=== PATIENT | male | born 1975 ===

== ENCOUNTER → 2020-08-01 | Outpatient (CLI) | payer SELFPAY ==
[~2020-08-01] MED LIST: CYCL10 PO; ERYT.5TO LEFTEYE; IBUP600 PO; NAPR500 PO; Naprosyn500 MG PO; Norco 5-325 Ta1 EACH PO; OXYACE5T PO; STEROID EYE DROPS; TOBDEXOPSU OS; Ultram50 MG PO
[2020-08-01 12:20] LABS: BASOPHILS ABSOLUTE AUTO 0.04 K/mm3 (0.00-0.23); BASOPHILS PERCENT AUTO 0 % (0-2); EOSINOPHILS ABSOLUTE AUTO 0.22 K/mm3 (0.00-0.68); EOSINOPHILS PERCENT AUTO 2 % (0-6); Hematocrit 47.9 % (37.0-53.0); Hemoglobin 15.8 g/dL (13.5-17.5); IMMATURE GRAN ABSOLUTE AUTO 0.08 K/mm3 (0.00-0.10); IMMATURE GRAN PERCENT AUTO 1 % (0-1); LYMPHOCYTES ABSOLUTE AUTO 2.96 K/mm3 (0.84-5.20); LYMPHOCYTES PERCENT AUTO 27 % (21-46); MONOCYTES ABSOLUTE AUTO 0.66 K/mm3 (0.16-1.47); MONOCYTES PERCENT AUTO 6 % (4-13); Mean Corpuscular HGB 31.1 pg (26.0-34.0); Mean Corpuscular Volume 94 fL (80-100); Mean Platelet Volume 9.2 fL (9.1-12.4); NEUTROPHILS ABSOLUTE AUTO 7.06 K/mm3 (1.96-9.15); NEUTROPHILS PERCENT AUTO 64 % (41-73); Platelet Count 369 K/mm3 (150-400); RDW Coefficient Variation 12.3 % (11.7-14.2); RDW Standard Deviation 42.5 fL (35.1-46.3); Red Blood Cell Count 5.08 M/mm3 (4.30-5.90); White Blood Cell Count 11.02 K/mm3 (4.00-11.30)
[2020-08-01 12:39] LABS: Alanine Aminotransfer (ALT/SGP 46 U/L (12-78); Albumin, Blood 3.7 g/dL (3.4-5.0); Albumin/Globulin Ratio 1.1 (0.8-1.8); Alk Phos 77 U/L (50-136); Anion Gap 6 mmol/L (6-16); Aspartate Aminotrans (AST/SGOT 21 U/L (12-37); Bilirubin, Total 0.2 mg/dL (0.1-1.0); Blood Urea Nitrogen 12 mg/dL (8-24); Bun/Creatinine Ratio 18.9 (12.0-20.0); CO2, Blood 30 mmol/L (21-32); Calcium, Blood 8.6 mg/dL (8.5-10.1); Chloride, Blood 106 mmol/L (98-108); Creatinine, Blood 0.64 mg/dL (0.60-1.20); Globulin, Blood 3.4 g/dL (2.2-4.0); Glomerular Filtration Rate >60 (60-); Glucose, Blood 123 mg/dL (70-99); Potassium, Blood 3.7 mmol/L (3.5-5.5); Sodium, Blood 142 mmol/L (136-145); Thyroid Stimulating Hormone 0.818 uIU/mL (0.360-4.800); Total Protein, Blood 7.1 g/dL (6.4-8.2)
== END ==
LOC: LAB SHORT 10:45
PROVIDERS: Family Medicine
DX: R53.82 Chronic fatigue, unspecified (principal)
CPT/HCPCS: 80053; 83036; 84443; 85025

== ENCOUNTER 2025-04-25 08:53 | Inpatient (IN) | payer OTHER ==
[~2025-04-25] VITALS: Ht 170.2 cm; Wt 92.2 kg
[2025-04-25 09:25] LABS: BASOPHILS ABSOLUTE AUTO 0.02 K/mm3 (0.00-0.23); BASOPHILS PERCENT AUTO 0 % (0-2); EOSINOPHILS ABSOLUTE AUTO 0.02 K/mm3 (0.00-0.68); EOSINOPHILS PERCENT AUTO 0 % (0-6); Hematocrit 44.3 % (37.0-53.0); Hemoglobin 15.0 g/dL (13.5-17.5); IMMATURE GRAN ABSOLUTE AUTO 0.04 K/mm3 (0.00-0.10); IMMATURE GRAN PERCENT AUTO 0 % (0-1); LYMPHOCYTES ABSOLUTE AUTO 1.87 K/mm3 (0.84-5.20); LYMPHOCYTES PERCENT AUTO 14 % (21-46); MONOCYTES ABSOLUTE AUTO 0.49 K/mm3 (0.16-1.47); MONOCYTES PERCENT AUTO 4 % (4-13); Mean Corpuscular HGB Conc 33.9 g/dL (31.5-36.5); Mean Corpuscular Volume 88 fL (80-100); NEUTROPHILS ABSOLUTE AUTO 10.52 K/mm3 (1.96-9.15); NEUTROPHILS PERCENT AUTO 81 % (41-73); NRBC ABSOLUTE 0.00 K/mm3 (0.00-0.02); NRBC Auto 0.0 /100 WBC (0.0-0.2); Platelet Count 320 K/mm3 (150-400); RDW Coefficient Variation 12.8 % (11.7-14.2); RDW Standard Deviation 41.1 fL (35.1-46.3)
[2025-04-25 09:51] LABS: Alanine Aminotransfer (ALT/SGP 34.0 U/L (12-78); Albumin, Blood 3.6 g/dL (3.4-5.0); Albumin/Globulin Ratio 0.9 (0.8-1.8); Anion Gap 9.0 mmol/L (3-11); Aspartate Aminotrans (AST/SGOT 18.0 U/L (12-37); Bilirubin, Total 0.4 mg/dL (0.1-1.0); Blood Urea Nitrogen 11.0 mg/dL (8-24); CO2, Blood 27.0 mmol/L (21-32); Calcium, Blood 8.9 mg/dL (8.5-10.1); Chloride, Blood 101.0 mmol/L (98-108); Creatinine, Blood 0.67 mg/dL (0.60-1.20); Globulin, Blood 3.8 g/dL (2.2-4.0); Glucose, Blood 127.0 mg/dL (70-99); Potassium, Blood 4.1 mmol/L (3.5-5.5); Sodium, Blood 133.0 mmol/L (136-145); Total Protein, Blood 7.4 g/dL (6.4-8.2)
[2025-04-25] MEDS ORDERED: NS 1,000 ML IV SCH (10:10)
[2025-04-25] MEDS ORDERED: FLU VACC TS2025-26(6MOS UP)/PF 45 MCG/0.5 ML SYRINGE IM SCH (13:15)
[2025-04-25 14:33] VITALS: BP 137/100
[2025-04-25 15:18] LABS: CHOL/HDL RATIO 2.5; Cholesterol 135 mg/dL (50-200); HDL Cholesterol 55 mg/dL (>39); LDL/HDL RATIO 1.2; Low Density Lipoprotein Chol 65 mg/dL (0-110); Triglycerides 77 mg/dL (30-160); Very Low Density Lipoprot Chol 15 mg/dL (6-32)
[2025-04-25 15:30] VITALS: BP 138/96
--- NOTE | 2025-04-25 15:44 | NUR ---
ADMIT TO PCU: PATIENT ALERT AND ORIENTED. PLEASENT AND COOPERATIVE WITH CARES. ABLE TO STAND AND TRANSFER TO PCU BED. MOVING ALL EXTREMITIES. DENIES PAIN. ORIENTED TO ROOM/UNIT. TELE SHOWING SR WITH HR 90'S. DENIES CHEST PAIN/PRESSURE/PALPITATIONS. PPP. IV SALINE LOCKED. STRESS TEST STARTED UPON ADMIT TO PCU. CTA OF CHEST COMPLETED IN ROUTE TO PCU FROM ED. NPO AT MIDNIGHT EXCEPT WATER. NO EDEMA NOTED. PLAN FOR ECHO. ON ROOM AIR, LUNG SOUNDS CLEAR. SATING ABOVE 95%. EVEN AND UNLABORED RESPIRATIONS. DENIES COUGH/SOB. BOWEL TONES PRESENT. DENIES ABDOMINAL PAIN/NAUSEA. TOLERATING PO DIET. NO TEETH, NEEDING EASY TO CHEW FOODS. SKIN INTACT WITH NO OPEN SORES/WOUNDS. DR. PAZ TO BEDSIDE. NO NEW ORDERS FOR THIS RN TO PLACE. CALL LIGHT IN REACH.
--- NOTE | 2025-04-25 17:55 | NUR ---
SHIFT SUMMARY: NO ACUTE CHANGES. PATIENT REMAINS ALERT AND ORIENTED. ON ROOM AIR. TELE SHOWING SR. EATING DINNER AT THIS TIME. NPO AT MIDNIGHT EXCEPT WATER FOR 1004 AM STRESS TEST. ECHO COMPELTED WELL FIRST PART OF STRESS TEST. DENIES CHEST PAIN/PRESSURE/PALPITATIONS. SBP REMAINS IN THE 130'S. USING URINAL TO VOID. DENIES NEEDS AT THIS TIME. CALL LIGHT IN REACH.
[2025-04-25 20:44] VITALS: BP 157/104
[2025-04-25 23:51] VITALS: BP 124/75
[2025-04-26] VITALS (7 sets, daily range): BP systolic 111–169; BP diastolic 71–102
[2025-04-26 03:53] LABS: BASOPHILS ABSOLUTE AUTO 0.03 K/mm3 (0.00-0.23); BASOPHILS PERCENT AUTO 0 % (0-2); EOSINOPHILS ABSOLUTE AUTO 0.09 K/mm3 (0.00-0.68); EOSINOPHILS PERCENT AUTO 1 % (0-6); Hematocrit 47.0 % (37.0-53.0); Hemoglobin 15.4 g/dL (13.5-17.5); IMMATURE GRAN ABSOLUTE AUTO 0.04 K/mm3 (0.00-0.10); IMMATURE GRAN PERCENT AUTO 0 % (0-1); LYMPHOCYTES ABSOLUTE AUTO 2.59 K/mm3 (0.84-5.20); LYMPHOCYTES PERCENT AUTO 22 % (21-46); MONOCYTES ABSOLUTE AUTO 0.79 K/mm3 (0.16-1.47); MONOCYTES PERCENT AUTO 7 % (4-13); Mean Corpuscular HGB Conc 32.8 g/dL (31.5-36.5); Mean Corpuscular Volume 89 fL (80-100); NEUTROPHILS ABSOLUTE AUTO 8.08 K/mm3 (1.96-9.15); NEUTROPHILS PERCENT AUTO 70 % (41-73); NRBC ABSOLUTE 0.00 K/mm3 (0.00-0.02); NRBC Auto 0.0 /100 WBC (0.0-0.2); Platelet Count 343 K/mm3 (150-400); RDW Coefficient Variation 12.8 % (11.7-14.2); RDW Standard Deviation 42.2 fL (35.1-46.3)
[2025-04-26] MEDS ORDERED: Morphine Sulfate 4 MG/1 ML Injection IV PRN (04:05)
[2025-04-26 04:23] LABS: Anion Gap 8.0 mmol/L (3-11); Blood Urea Nitrogen 13.0 mg/dL (8-24); CO2, Blood 27.0 mmol/L (21-32); Calcium, Blood 9.1 mg/dL (8.5-10.1); Chloride, Blood 101.0 mmol/L (98-108); Creatinine, Blood 0.61 mg/dL (0.60-1.20); Glucose, Blood 110.0 mg/dL (70-99); Potassium, Blood 4.1 mmol/L (3.5-5.5); Sodium, Blood 132.0 mmol/L (136-145)
--- NOTE | 2025-04-26 04:53 | NUR ---
SHIFT SUMMARY PT HAD ONE EPISODE OF SHARP, INTENSE CP, DENIES SOB OR RADIATING PAIN. VSS. MD PHELAN NOTIFIED. PT REPORTED THAT CP RESOLVED BEFORE ORDERS WERE PLACED. PRN MEDICATION NOT ADMINISTERED AT THIS TIME. PT RESTING COMFORTABLY IN BED WITH EYES CLOSED. BP ELEVATED AT START OF SHIFT. MEDS ADMINISTERED PER EMAR. VSS. NO CAFFEINE GIVEN AFTER 1900 AND PT NPO AT MIDNIGHT FOR STRESS TEST IN AM. AOX4. O2 SATURATION 99% ON RA.
[2025-04-26] MEDS ORDERED: Magnesium Hydroxide Conc 10 ML UDC PO ONE (09:00)
[2025-04-26] MEDS ORDERED: Enoxaparin 40 MG/0.4 ML SYR SC SCH (09:00)
--- NOTE | 2025-04-26 15:00 | NUR ---
2ND PART OF STRESS TEST COMPLETED. CARDIOLOGY CONSULT. PLAN FOR ANGIO IN AM. NPO AT MIDNIGHT. SHOWER COMPLETED. ALERT AND ORIENTED. PARANOID AT TIMES. COOPERATIVE AND PLEASENT WITH CARES. UP WITH SBA FOR SAFETY. DENIES PAINS. ON ROOM AIR SATING ABOVE 95%. DENIES CHEST PAIN/PRESSURE/PALPITATIONS. TELE SHOWING SR WITH HR 70-80'S. NO EDEMA NOTED. IV SALINE LOCKED. BOWEL TONES PRESENT. TOLERATING PO DIET. USING URINAL IND. CALL LIGHT IN REACH. DENIES NEEDS AT THIS TIME.
--- NOTE | 2025-04-26 18:22 | NUR ---
NO ACUTE CHANGES. PATIENT ALERT AND ORIENTED. ON ROOM AIR. TELE SHOWING SR WITH HR 70'S. CONTINUES TO DENY CHEST PAIN/PRESSURE/PALPITATIONS. PLAN FOR ANGIO TOMORROW. NPO AT MIDNIGHT. EATING DINNER AT THIS TIME. DENIES NEEDS. CALL LIGHT IN REACH.
[2025-04-26] MEDS ORDERED: Magnesium Hydroxide Conc 10 ML UDC PO PRN (21:00)
[2025-04-27] VITALS (13 sets, daily range): BP systolic 127–188; BP diastolic 61–112
[2025-04-27 04:18] LABS: BASOPHILS ABSOLUTE AUTO 0.03 K/mm3 (0.00-0.23); BASOPHILS PERCENT AUTO 0 % (0-2); EOSINOPHILS ABSOLUTE AUTO 0.06 K/mm3 (0.00-0.68); EOSINOPHILS PERCENT AUTO 1 % (0-6); Hematocrit 46.6 % (37.0-53.0); Hemoglobin 15.7 g/dL (13.5-17.5); IMMATURE GRAN ABSOLUTE AUTO 0.03 K/mm3 (0.00-0.10); IMMATURE GRAN PERCENT AUTO 0 % (0-1); LYMPHOCYTES ABSOLUTE AUTO 2.83 K/mm3 (0.84-5.20); LYMPHOCYTES PERCENT AUTO 26 % (21-46); MONOCYTES ABSOLUTE AUTO 0.77 K/mm3 (0.16-1.47); MONOCYTES PERCENT AUTO 7 % (4-13); Mean Corpuscular HGB Conc 33.7 g/dL (31.5-36.5); Mean Corpuscular Volume 88 fL (80-100); NEUTROPHILS ABSOLUTE AUTO 6.98 K/mm3 (1.96-9.15); NEUTROPHILS PERCENT AUTO 65 % (41-73); NRBC ABSOLUTE 0.00 K/mm3 (0.00-0.02); NRBC Auto 0.0 /100 WBC (0.0-0.2); Platelet Count 294 K/mm3 (150-400); RDW Coefficient Variation 12.8 % (11.7-14.2); RDW Standard Deviation 41.5 fL (35.1-46.3)
[2025-04-27 04:36] LABS: Anion Gap 10.0 mmol/L (3-11); Blood Urea Nitrogen 15.0 mg/dL (8-24); CO2, Blood 25.0 mmol/L (21-32); Calcium, Blood 9.1 mg/dL (8.5-10.1); Chloride, Blood 102.0 mmol/L (98-108); Creatinine, Blood 0.63 mg/dL (0.60-1.20); Glucose, Blood 110.0 mg/dL (70-99); Potassium, Blood 3.6 mmol/L (3.5-5.5); Sodium, Blood 133.0 mmol/L (136-145)
--- NOTE | 2025-04-27 05:15 | NUR ---
SHIFT SUMMARY PT REMAINED A/OX4, DENIED PAIN, VERBALIZES NEEDS, FOLLOWS COMMANDS. ON CONTINUOUS CARDIAC TELEMETRY, VSS, BP 140 S SYSTOLIC. HE DENIES CHEST PAIN BUT ENDORSES DECREASING CHEST PRESSURE THAT IS BETTER THAN IT WAS. ON ROOM AIR, SATS ABOVE 95%. BREATHING IS UNLABORED AND EVEN. PT HAS BEEN NPO SINCE 0000. NO ACUTE EVENTS OVERNIGHT.
[2025-04-27] MEDS ORDERED: NS 550 ML IV STA (07:47)
[2025-04-27] MEDS ORDERED: NS 250 ML IV ONE (08:07)
[2025-04-27] MEDS ORDERED: NS 1,000 ML IV ONE ×2 (08:07→08:24)
[2025-04-27] MEDS ORDERED: Verapamil HCL 2.5 MG/ML 2ML Injection ONE (08:07)
[2025-04-27] MEDS ORDERED: Heparin Sodium 1000 Units/ML 10ML MDV ONE (08:07)
[2025-04-27] MEDS ORDERED: Nitroglycerin 2 MG/20 ML BTL ONE (08:08)
[2025-04-27] MEDS ORDERED: Midazolam HCl 1MG / ML 2ML Vial ONE (08:29)
[2025-04-27] MEDS ORDERED: FentaNYL Citrate 50 MCG/ML 2 ML Injection ONE (08:30)
--- NOTE | 2025-04-27 08:34 | NUR ---
UPDATE: PT LEFT FOR CAMPUS ADMINISTRATOR VIA BED AT APPROX 0834
--- NOTE | 2025-04-27 09:36 | NUR ---
UPDATE: PT BACK FROM SUPPORT SPECIALIST AT APPROX 0932. TR BAND ON R RADIAL WRIST, NO SWELLING OR BLEEDING TO THE SITE. PT WITH 11CC OF AIR IN BAND. VSS.
--- NOTE | 2025-04-27 14:38 | NUR ---
UPDATE: ONLY 1 CC OF AIR WAS FOUND TO BE IN TR BAND AT APPROX 1155, HOSPITAL CHIEF FINANCIAL OFFICER WAS NOTIF. R RADIAL SITE SHOWS NO SWELLING, BRUISING, OR OOZING OF BLOOD. TEGEDERM PLACED OVER SITE, PT EDUCATED ON LIMITED USE OF R ARM. VSS.
--- NOTE | 2025-04-27 15:59 | NUR ---
SHIFT SUMMARY: PT A/O X4, ABLE TO MAKE NEEDS KNOWN. STRENGTH EQUAL BILATERALLY, PERRLA. ROOM AIR, SATS >93%. DENIES SOB. PT NSR 70-80s, AFEBRILE, OTHER VSS. DENIES CHEST PAIN/PRESSURE. SBA TO BATHROOM, LAST BM TODAY. R RADIAL SIGHT REMAINS C/D/I, NO BRUISING NOTED. PLAN FOR POSSIBLE D/C IN AM. PT LYING IN BED, CALL WITHIN REACH.
[2025-04-28 00:30] VITALS: BP 167/89
[2025-04-28 03:49] VITALS: BP 152/107
[2025-04-28 04:56] VITALS: BP 143/93
--- NOTE | 2025-04-28 06:14 | NUR ---
NOC SHIFT SUMMARY PT IS A&OX4 ABLE TO MAKE NEEDS KNOWN. SBA TO THE BR. DENIES PAIN OF ANY KIND. R RADIAL SITE DRESSING IN PLACE, FREE OF REDNESS, SWELLING OR HEMATOMA. ARM BOARD IN PLACE. TELE IN PLACE SHOWING SR W/ BBB RATE OF 71. ROOM SATTING 945, BREATHING EVEN AND UNLABORED. PT IS LAYING IN BED CURRENTLY, BED IN LOW, CALL LIGHT IN REACH. WILL REPORT TO ONCOMING RN.
[2025-04-28 08:37] VITALS: BP 137/88
[2025-04-28] MEDS ORDERED: Isosorbide Mononitrate 30 MG TABCR PO SCH (09:00)
[2025-04-28] MEDS ORDERED: LIPITOR80 MG PO (10:25)
[2025-04-28] MEDS ORDERED: JARDIANCE10 MG PO (10:25)
[2025-04-28] MEDS ORDERED: ASPI81CH PO (10:25)
[2025-04-28] MEDS ORDERED: TOPROL XL50 M1 PO (10:26)
[2025-04-28] MEDS ORDERED: LOSA25 PO (10:26)
--- NOTE | 2025-04-28 12:01 | NUR ---
SHIFT SUMMARY/DISCHARGE PATIENT IS ALERT AND ORIENTED, ABLE TO FOLLOW COMMANDS AND MAKE NEEDS KNOWN. PATIENT ANSWERS ALL QUESTIONS APPROPRIATELY, INTERMITTENTLY EXHIBITS PARANOID SPEECH. VSS, TELE IN PLACE, SINUS RHYTHM IN 70'S, SPO2 >90% ON RA, PATIENT DENIES PRESENCE OF CHEST PAIN OR PRESSURE, DENIES SHORTNESS OF BREATH. PATIENT DENIES N/V/D. NO ACUTE CHANGES SINCE SHIFT SUMMARY. DISCHARGE PATIENT EDUCATED ON DISCHARGE INSTRUCTIONS, ALL QUESTIONS ANSWERED, EDUCATIONAL MATERIALS WITH PATIENT. PATIENT IN NO SIGNS OF DISTRESS. ALL BELONGINGS WITH PATIENT. PATIENT LEFT UNIT VIA WHEELCHAIR AT 1120.
== END 2025-04-28 11:31 | disposition home or self-care (01) | DRG 287 ==
LOC: ER 08:53 → PCU 08:54
PROVIDERS: Student in an Organized Health Care Education/Training Program; ADMIT Student in an Organized Health Care Education/Training Program
PROC: 3E02340 Introduction of Influenza Vaccine into Muscle, Percutaneous Approach (ICD-10-PCS; 2025-04-25)
PROC: B2111ZZ Fluoroscopy of Multiple Coronary Arteries using Low Osmolar Contrast (ICD-10-PCS; principal; 2025-04-27)
PROC: 4A023N7 Measurement of Cardiac Sampling and Pressure, Left Heart, Percutaneous Approach (ICD-10-PCS; 2025-04-27)
DX: I25.119 Atherosclerotic heart disease of native coronary artery with unspecified angina pectoris (principal); Z59.00 Homelessness unspecified; E87.1 Hypo-osmolality and hyponatremia; I50.32 Chronic diastolic (congestive) heart failure; F17.210 Nicotine dependence, cigarettes, uncomplicated; F10.10 Alcohol abuse, uncomplicated; F15.10 Other stimulant abuse, uncomplicated; F11.10 Opioid abuse, uncomplicated; R73.03 Prediabetes; I11.0 Hypertensive heart disease with heart failure; E78.5 Hyperlipidemia, unspecified; Z91.148 Patient's other noncompliance with medication regimen for other reason; Z79.891 Long term (current) use of opiate analgesic; Z95.5 Presence of coronary angioplasty implant and graft; Z79.1 Long term (current) use of non-steroidal anti-inflammatories (NSAID); Z79.899 Other long term (current) drug therapy
CPT/HCPCS: 36415; 71046; 71275; 76937; 78452; 80048; 80053; 80061; 83036; 83690; 83880; 84484; 85025; 93005; 93010; 93017; 93306; 93458; 96360; 99152; 99153; 99285-25; A9270; A9500; C1769; C1887; C1894; G0378; J0706; J1644; J1650; J2250; J2785; J3010; J7030; J7050; Q9967